=== PATIENT | male | born 1980 | race Two or more races ===

== ENCOUNTER 2021-06-03 20:13 | Inpatient (IN) | payer OTHER, SELFPAY ==
[~2021-06-03] VITALS: Ht 172.7 cm; Wt 90.2 kg
[2021-06-03] MEDS ORDERED: IBUPROFEN 600 MG TAB PO ONE (20:30)
[2021-06-03] MEDS ORDERED: DexAMETHasone SOD PHOS 10MG/1ML VIAL INJ IV ONE (22:00)
[2021-06-03] MEDS ORDERED: AZITHROMYCIN 500MG/ 250ML 250 ML IV ONE (22:00)
[2021-06-03 22:38] LABS: Basophils # (auto) 0 10 ^3/uL (0-0.2); Basophils % (auto) 0.4 % (0.0-2.0); Eosinophils # (auto) 0 10 ^3/uL (0-0.8); Eosinophils % (auto) 0.2 % (0.0-7.0); Hematocrit 42.2 % (41.0-53.0); Hemoglobin 14.3 g/dL (13.5-17.5); Lymphocytes # (auto) 0.7 10 ^3/uL (0.4-5.4); Lymphocytes % (auto) 9.5 % (10.0-50.0); Mean Corpuscular Hemoglobin 30.4 pg (28.0-32.0); Mean Corpuscular Volume 89.5 fL (80.0-100.0); Monocytes # (auto) 0.4 10 ^3/uL (0-1.3); Monocytes % (auto) 5.3 % (0.0-12.0); Neutrophils # (auto) 6.1 10 ^3/uL (1.6-8.6); Neutrophils % (auto) 84.6 % (37.0-80.0); Nucleated Red Blood Cells % 0.1 %; Red Blood Cells 4.71 10^6/uL (4.5-5.90); Red Cell Distribution Width 12.8 % (11.8-14.3); White Blood Cell 7.2 10^3/uL (4.4-10.8)
[2021-06-03] MEDS ORDERED: ACETAMINOPHEN 500 MG TAB PO PRN (22:45)
[2021-06-03] MEDS ORDERED: ONDANSETRON HCL 4 MG/2 ML VIAL IV PRN (22:45)
[2021-06-03] MEDS ORDERED: cefTRIAXone 1GM/50ML D5W 50 ML IV ONE (22:45)
[2021-06-03] MEDS ORDERED: NITROGLYCERIN 0.4 MG SL TAB SL PRN (22:45)
[2021-06-03] MEDS ORDERED: TEMAZEPAM 15 MG CAP PO PRN (22:45)
[2021-06-03] MEDS ORDERED: MORPHINE SULFATE INJECTION 2 MG/ML SYRG IV PRN (22:45)
[2021-06-03] MEDS ORDERED: REMDESIVIR PER PHARMACY 0 ML IV SCH (22:45)
[2021-06-03 23:09] LABS: Calcium 7.9 mg/dL (8.5-10.1); Potassium 3.2 mmol/L (3.5-5.1)
[2021-06-03 23:18] LABS: BUN/Creatinine Ratio 11.8; Bilirubin, Total 0.4 mg/dL (0.2-1.0); Total Protein 6.8 g/dL (6.4-8.2)
[2021-06-04] VITALS (7 sets, daily range): BP systolic 107–118; BP diastolic 61–71
[2021-06-04] MEDS ORDERED: PNEUMOCOCCAL VACC POLYS 25 MCG/0.5 ML VIAL IM ONE (02:15)
[2021-06-04] MEDS ORDERED: INFLUENZA QUAD 2021-2022 0.5 ML SYRG IM ONE (02:15)
[2021-06-04 06:37] LABS: Basophils # (auto) 0 10 ^3/uL (0-0.2); Basophils % (auto) 0.6 % (0.0-2.0); Eosinophils # (auto) 0.1 10 ^3/uL (0-0.8); Eosinophils % (auto) 0.9 % (0.0-7.0); Hematocrit 41.6 % (41.0-53.0); Hemoglobin 14.3 g/dL (13.5-17.5); Lymphocytes # (auto) 1.1 10 ^3/uL (0.4-5.4); Lymphocytes % (auto) 17.1 % (10.0-50.0); Mean Corpuscular Hemoglobin 31.3 pg (28.0-32.0); Mean Corpuscular Hgb Conc. 34.4 g/dL (32.0-36.0); Mean Corpuscular Volume 90.9 fL (80.0-100.0); Monocytes # (auto) 0.5 10 ^3/uL (0-1.3); Monocytes % (auto) 7.2 % (0.0-12.0); Neutrophils # (auto) 4.7 10 ^3/uL (1.6-8.6); Neutrophils % (auto) 74.2 % (37.0-80.0); Red Blood Cells 4.58 10^6/uL (4.5-5.90); White Blood Cell 6.3 10^3/uL (4.4-10.8)
[2021-06-04 06:46] LABS: Calcium 7.9 mg/dL (8.5-10.1); Potassium 3.6 mmol/L (3.5-5.1)
[2021-06-04 06:52] LABS: Albumin 2.8 g/dL (3.4-5.0); BUN/Creatinine Ratio 11.9; Bilirubin, Total 0.4 mg/dL (0.2-1.0)
[2021-06-04] MEDS: cefTRIAXone 1GM/50ML D5W 50 ML IV SCH (10:03)
[2021-06-04] MEDS: ENOXAPARIN SOD 40 MG/0.4 ML SYRINGE SC SCH ×2 (10:03→22:15)
[2021-06-04] MEDS: ASCORBIC ACID 1,000 MG TAB PO SCH (10:03)
[2021-06-04] MEDS: DexAMETHasone SOD PHOS 10MG/1ML VIAL INJ IV SCH (10:03)
[2021-06-04] MEDS: ZINC SULFATE 220mg CAP or TAB PO SCH (10:04)
[2021-06-04] MEDS: CHOLECALCIFEROL (VITD3) 2,000 UNIT CAP/TAB PO SCH (10:04)
[2021-06-04] MEDS: PANTOPRAZOLE 40 MG TAB PO SCH (10:04)
[2021-06-04] MEDS: AZITHROMYCIN 500MG/ 250ML 250 ML IV SCH (10:05)
[2021-06-04] MEDS ORDERED: FUROSEMIDE 20 MG/2 ML VIAL IV ONE (12:15)
[2021-06-04] MEDS ORDERED: POTASSIUM CHL 20 Meq TABLET PO ONE (12:15)
[2021-06-04] MEDS ORDERED: BUDESONIDE (INHALATION) 0.5 MG/2 ML NEB NEB ONE (12:15)
[2021-06-04] MEDS ORDERED: REMDESIVIR 200 MG in NS 210ml LOADING DOSE ADULT IV ONE (15:00)
[2021-06-04] MEDS: BUDESONIDE (INHALATION) 0.5 MG/2 ML NEB NEB SCH (22:04)
[2021-06-04] MEDS: ALBUTEROL SULF HFA 90MCG INH 200DOSE IN PRN (23:21)
[2021-06-05 05:00] VITALS: BP 106/65
[2021-06-05 08:16] LABS: Albumin 2.9 g/dL (3.4-5.0); BUN/Creatinine Ratio 21.1; Bilirubin, Total 0.4 mg/dL (0.2-1.0); Calcium 8.6 mg/dL (8.5-10.1); Total Protein 6.3 g/dL (6.4-8.2)
[2021-06-05 09:00] VITALS: BP 98/63
[2021-06-05] MEDS: DexAMETHasone SOD PHOS 10MG/1ML VIAL INJ IV SCH (09:23)
[2021-06-05] MEDS: cefTRIAXone 1GM/50ML D5W 50 ML IV SCH (09:23)
[2021-06-05] MEDS: ENOXAPARIN SOD 40 MG/0.4 ML SYRINGE SC SCH ×2 (09:24→22:36)
[2021-06-05] MEDS: ASCORBIC ACID 1,000 MG TAB PO SCH (09:25)
[2021-06-05] MEDS: PANTOPRAZOLE 40 MG TAB PO SCH (09:26)
[2021-06-05] MEDS: CHOLECALCIFEROL (VITD3) 2,000 UNIT CAP/TAB PO SCH (09:26)
[2021-06-05] MEDS: ZINC SULFATE 220mg CAP or TAB PO SCH (09:26)
[2021-06-05] MEDS: BUDESONIDE (INHALATION) 0.5 MG/2 ML NEB NEB SCH ×2 (09:51→20:34)
[2021-06-05] MEDS: ALBUTEROL SULF HFA 90MCG INH 200DOSE IN PRN ×2 (09:51→20:34)
[2021-06-05] MEDS: AZITHROMYCIN 500MG/ 250ML 250 ML IV SCH (11:00)
[2021-06-05 13:00] VITALS: BP 111/63
[2021-06-05] MEDS: REMDESIVIR 100mg 100 MG in SODIUM CHL 0.9% 230 ML IV SCH (15:31)
[2021-06-05 16:58] VITALS: BP 111/62
[2021-06-05 22:00] VITALS: BP 109/63
[2021-06-06 05:00] VITALS: BP 115/66
[2021-06-06 06:23] LABS: Potassium 4.3 mmol/L (3.5-5.1)
[2021-06-06 06:27] LABS: Albumin 2.7 g/dL (3.4-5.0); Calcium 8.4 mg/dL (8.5-10.1)
[2021-06-06 06:29] LABS: Bilirubin, Total 0.4 mg/dL (0.2-1.0); Total Protein 5.8 g/dL (6.4-8.2)
[2021-06-06 09:00] VITALS: BP 108/73
[2021-06-06] MEDS: cefTRIAXone 1GM/50ML D5W 50 ML IV SCH (10:55)
[2021-06-06] MEDS: PANTOPRAZOLE 40 MG TAB PO SCH (10:55)
[2021-06-06] MEDS: ZINC SULFATE 220mg CAP or TAB PO SCH (10:55)
[2021-06-06] MEDS: ENOXAPARIN SOD 40 MG/0.4 ML SYRINGE SC SCH ×2 (10:56→22:06)
[2021-06-06] MEDS: CHOLECALCIFEROL (VITD3) 2,000 UNIT CAP/TAB PO SCH (10:56)
[2021-06-06] MEDS: ASCORBIC ACID 1,000 MG TAB PO SCH (10:56)
[2021-06-06] MEDS: ALBUTEROL SULF HFA 90MCG INH 200DOSE IN PRN ×2 (11:45→21:23)
[2021-06-06] MEDS: DexAMETHasone SOD PHOS 10MG/1ML VIAL INJ IV SCH (11:49)
[2021-06-06] MEDS: AZITHROMYCIN 500MG/ 250ML 250 ML IV SCH (11:50)
[2021-06-06 13:00] VITALS: BP 117/68
[2021-06-06] MEDS: REMDESIVIR 100mg 100 MG in SODIUM CHL 0.9% 230 ML IV SCH (15:04)
[2021-06-06 17:00] VITALS: BP 103/63
[2021-06-06] MEDS: BUDESONIDE (INHALATION) 0.5 MG/2 ML NEB NEB SCH (21:23)
[2021-06-06 22:00] VITALS: BP 111/61
[2021-06-07 05:00] VITALS: BP 114/60
[2021-06-07 06:42] LABS: Basophils # (auto) 0 10 ^3/uL (0-0.2); Basophils % (auto) 0.3 % (0.0-2.0); Eosinophils # (auto) 0 10 ^3/uL (0-0.8); Eosinophils % (auto) 0.2 % (0.0-7.0); Hematocrit 41.9 % (41.0-53.0); Hemoglobin 14.4 g/dL (13.5-17.5); Lymphocytes # (auto) 1.1 10 ^3/uL (0.4-5.4); Lymphocytes % (auto) 23.2 % (10.0-50.0); Mean Corpuscular Hemoglobin 31.3 pg (28.0-32.0); Mean Corpuscular Hgb Conc. 34.4 g/dL (32.0-36.0); Mean Corpuscular Volume 90.9 fL (80.0-100.0); Monocytes # (auto) 0.6 10 ^3/uL (0-1.3); Monocytes % (auto) 12.1 % (0.0-12.0); Neutrophils # (auto) 3.1 10 ^3/uL (1.6-8.6); Neutrophils % (auto) 64.2 % (37.0-80.0); Nucleated Red Blood Cells % 0.1 %; Red Blood Cells 4.62 10^6/uL (4.5-5.90); Red Cell Distribution Width 12.7 % (11.8-14.3); White Blood Cell 4.8 10^3/uL (4.4-10.8)
[2021-06-07 06:56] LABS: Calcium 8.2 mg/dL (8.5-10.1); Potassium 4.9 mmol/L (3.5-5.1)
[2021-06-07 06:59] LABS: Albumin 2.8 g/dL (3.4-5.0); BUN/Creatinine Ratio 28.4
[2021-06-07] MEDS: ALBUTEROL SULF HFA 90MCG INH 200DOSE IN PRN ×2 (07:01→23:36)
[2021-06-07 07:02] LABS: Bilirubin, Total 0.4 mg/dL (0.2-1.0); Total Protein 5.9 g/dL (6.4-8.2)
[2021-06-07 09:00] VITALS: BP 117/62
[2021-06-07] MEDS: AZITHROMYCIN 500MG/ 250ML 250 ML IV SCH (09:02)
[2021-06-07] MEDS: DexAMETHasone SOD PHOS 10MG/1ML VIAL INJ IV SCH (09:02)
[2021-06-07] MEDS: PANTOPRAZOLE 40 MG TAB PO SCH (09:03)
[2021-06-07] MEDS: ZINC SULFATE 220mg CAP or TAB PO SCH (09:03)
[2021-06-07] MEDS: ASCORBIC ACID 1,000 MG TAB PO SCH (09:04)
[2021-06-07] MEDS: CHOLECALCIFEROL (VITD3) 2,000 UNIT CAP/TAB PO SCH (09:04)
[2021-06-07] MEDS: ENOXAPARIN SOD 40 MG/0.4 ML SYRINGE SC SCH ×2 (09:09→22:05)
[2021-06-07] MEDS: BUDESONIDE (INHALATION) 0.5 MG/2 ML NEB NEB SCH ×2 (09:47→23:36)
[2021-06-07 13:00] VITALS: BP 99/59
[2021-06-07] MEDS: REMDESIVIR 100mg 100 MG in SODIUM CHL 0.9% 230 ML IV SCH (15:49)
[2021-06-07 17:00] VITALS: BP 125/71
[2021-06-07 22:00] VITALS: BP 115/66
[2021-06-08 05:00] VITALS: BP 116/82
[2021-06-08] MEDS: BUDESONIDE (INHALATION) 0.5 MG/2 ML NEB NEB SCH (06:12)
[2021-06-08] MEDS: ALBUTEROL SULF HFA 90MCG INH 200DOSE IN PRN ×2 (06:12→06:15)
[2021-06-08 06:47] LABS: Hematocrit 42.4 % (41.0-53.0); Hemoglobin 14.3 g/dL (13.5-17.5); Mean Corpuscular Hemoglobin 30.4 pg (28.0-32.0); Mean Corpuscular Hgb Conc. 33.8 g/dL (32.0-36.0); Mean Corpuscular Volume 89.8 fL (80.0-100.0); Red Blood Cells 4.71 10^6/uL (4.5-5.90); Red Cell Distribution Width 12.4 % (11.8-14.3); White Blood Cell 6.6 10^3/uL (4.4-10.8)
[2021-06-08 07:09] LABS: Basophils % (manual) 0 (0.0-2.0); Blast Cells 0; Eosinophils % (manual) 0 (0-7); Metamyelocytes % 0; Myelocytes % 0; Promyelocytes % 0; Reactive Lymphocytes 0
[2021-06-08 07:14] LABS: Albumin 2.8 g/dL (3.4-5.0); Calcium 8.3 mg/dL (8.5-10.1); Potassium 4.5 mmol/L (3.5-5.1)
[2021-06-08 07:19] LABS: BUN/Creatinine Ratio 23.4; Bilirubin, Total 0.4 mg/dL (0.2-1.0); Total Protein 5.7 g/dL (6.4-8.2)
[2021-06-08 08:04] LABS: Band Neutrophils % (manual) 2; Lymphocytes % (manual) 35 (10.0-50.0); Monocytes % (manual) 15 (0-12)
[2021-06-08 08:38] VITALS: BP 118/73
[2021-06-08] MEDS: ZINC SULFATE 220mg CAP or TAB PO SCH (09:50)
[2021-06-08] MEDS: PANTOPRAZOLE 40 MG TAB PO SCH (09:50)
[2021-06-08] MEDS: DexAMETHasone SOD PHOS 10MG/1ML VIAL INJ IV SCH (09:50)
[2021-06-08] MEDS: AZITHROMYCIN 500MG/ 250ML 250 ML IV SCH (09:50)
[2021-06-08] MEDS: ENOXAPARIN SOD 40 MG/0.4 ML SYRINGE SC SCH (09:51)
[2021-06-08] MEDS: ASCORBIC ACID 1,000 MG TAB PO SCH (09:51)
[2021-06-08] MEDS: CHOLECALCIFEROL (VITD3) 2,000 UNIT CAP/TAB PO SCH (09:51)
[2021-06-08 12:15] VITALS: BP 118/73
[2021-06-08] MEDS: REMDESIVIR 100mg 100 MG in SODIUM CHL 0.9% 230 ML IV SCH (12:25)
[2021-06-08 13:00] VITALS: BP 118/72
== END 2021-06-08 14:14 | disposition home or self-care (01) | DRG 871 ==
LOC: ER 20:14 → TELE 22:37 → TELE-EAST 23:47
PROVIDERS: ADMIT Nurse Practitioner; ATTEND Internal Medicine
PROC: XW033E5 Introduction of Remdesivir Anti-infective into Peripheral Vein, Percutaneous Approach, New Technology Group 5 (ICD-10-PCS; principal; 2021-06-04)
DX: A41.89 Other specified sepsis (principal); U07.1 COVID-19; J12.82 Pneumonia due to coronavirus disease 2019; J96.01 Acute respiratory failure with hypoxia; D89.839 Cytokine release syndrome, grade unspecified; E66.9 Obesity, unspecified; Z68.30 Body mass index [BMI] 30.0-30.9, adult
CPT/HCPCS: 36415; 71045; 80053; 82728; 83605; 83615; 83735; 83880; 84484; 85007; 85025; 85027; 85379; 86141; 87040; 87426; 93005; 94640; 96365; 96375; G0378; J0696; J1100